=== PATIENT | male | born 1995 | race Caucasian/White ===

== ENCOUNTER 2016-11-20 15:07 | Emergency (ER) | payer SELFPAY ==
[2016-11-20] MEDS ORDERED: PANTOPRAZOLE SODIUM IV 40 MG VIAL IV ONE (15:27)
--- NOTE | 2016-11-20 15:32 | ED.PDOC ---
History of Present Illness - General Chief Complaint: GI Problem Stated Complaint: abdominal pain Time Seen by Provider: 11/20/16 15:26 Information Source: patient, RN notes reviewed, Vital Signs reviewed Exam Limitations: no limitations - History of Present Illness Initial Comments: Patient reports 5 days of nausea and vomiting with fever and crampy abdominal pain. + chills, subjective fever. Today noticed blood in vomit, both dark red and bright red. No diarrhea. No urinary symptoms. Reports he is still eating ok. Vomited ~ 20X over past 5 days. Abdominal Pain Onset Location: epigastric Pain Radiation: no radiation Quality: moderate, cramping Timing/Duration: days Improving Factors: nothing Worsening Factors: nothing Associated Symptoms: fever/chills, nausea/vomiting Review of Systems - Review of Systems Constitutional: States: chills, fever, malaise. Denies: weakness EENTM: States: no symptoms reported Respiratory: States: no symptoms reported. Denies: cough, short of breath Cardiology: States: no symptoms reported. Denies: chest pain Gastrointestinal/Abdominal: States: see HPI, abdominal pain, nausea, vomiting, other - hematemasis. Denies: constipation, diarrhea Genitourinary: States: no symptoms reported Musculoskeletal: States: no symptoms reported. Denies: back pain Skin: States: no symptoms reported Neurological: States: no symptoms reported. Denies: headache Family Medical History - Family History Mother Family History: Unknown Physical Exam - Physical Exam General Appearance: Alert, Comfortable, No apparent distress, Well Developed, Well Groomed, Well Hydrated, Well Nourished Neck: non-tender, full range of motion, supple, normal inspection Respiratory: chest non-tender, lungs clear, normal breath sounds, no respiratory distress, no accessory muscle use Cardiovascular/Chest: regular rate, rhythm, no edema, no gallop, no JVD, no murmur Gastrointestinal/Abdominal: normal bowel sounds, soft, guarding, tenderness - Epigastric and LUQ with guarding, no rebound Back Exam: normal inspection, no CVA tenderness Extremity: normal range of motion, normal inspection Neurologic: no motor/sensory deficits, alert, normal mood/affect, oriented x 3 Skin Exam: normal color, warm/dry Progress - Progress Progress: 11/20/16 16:11 Patient is feeling a lot better after IV Protonix. Nausea resolved. - Results/Orders Results/Orders: Laboratory Tests 11/20/16 11/20/16 11/20/16 15:25 15:25 16:15 WBC 8.3 RBC 5.11 Hgb 15.9 Hct 46.0 MCV 90.1 MCH 31.2 H MCHC 34.6 RDW 12.6 Plt Count 342 MPV 8.1 Absolute Neuts (auto) 5.70 Absolute Lymphs (auto) 1.90 Absolute Monos (auto) 0.60 Absolute Eos (auto) 0.10 Absolute Basos (auto) 0.10 Neutrophils % 68.7 Lymphocytes % 23.0 Monocytes % 6.7 Eosinophils % 0.9 L Basophils % 0.7 Sodium 138 Potassium 3.5 L Chloride 103 Carbon Dioxide 28 Anion Gap 10.5 L BUN 11 Creatinine 0.76 BUN/Creatinine Ratio 14.5 Random Glucose 83 Serum Osmolality 274.2 L Calcium 9.9 Total Bilirubin 0.8 AST 24 ALT 27 Alkaline Phosphatase 81 L Serum Total Protein 8.1 Albumin 4.9 Globulin 3.2 Albumin/Globulin Ratio 1.5 Amylase 34 Lipase 27 Urine Color Yellow Urine Appearance Clear Urine pH 8.5 H Ur Specific [place] 1.015 Urine Protein Negative Urine Glucose (UA) Negative Urine Ketones Negative Urine Blood Negative Urine Nitrite Negative Urine Bilirubin Negative Urine Urobilinogen 0.2 Ur Leukocyte Esterase Negative Urine RBC 0-1 Urine WBC 0 Ur Epithelial Cells 0 Amorphous Sediment 1+ Urine Bacteria 0 - EKG/XRAY/CT CT Ordered: Yes - No acute intraabdominal process Departure - Departure Clinical Impression: Gastroesophageal reflux disease Qualifiers: Esophagitis presence: esophagitis presence not specified Qualified Code(s): K21.9 - Gastro-esophageal reflux disease without esophagitis Vomiting Qualifiers: Vomiting type: hematemesis Nausea presence: with nausea Qualified Code(s): K92.0 - Hematemesis; R11.0 - Nausea Time of Disposition: 16:33 Disposition: Discharge to Home or Self Care Condition: Good Departure Forms: ED Discharge - Pt. Copy, Patient Portal Self Enrollment Instructions: DI for Gastroesophageal Reflux Disease (GERD) Diet: resume usual diet Activity: increase activity as tolerated Referrals: Rogerio Ferreira MD [Consulting Staff] - 1-2 Weeks Prescriptions: Pantoprazole Tablet [Protonix] 40 mg PO ACBK #30 tab Home Medications: Ambulatory Orders Pantoprazole Tablet [Protonix] 40 mg PO ACBK #30 tab 11/20/16
--- NOTE | 2016-11-20 16:05 | CT ---
EXAM DESCRIPTION: Abdomen/Pelvis w/Contrast CLINICAL HISTORY: Pain with vomiting COMPARISON: None TECHNIQUE: Postcontrast multidetector CT imaging of the abdomen and pelvis was performed. Multiplanar reconstructions were generated. This exam was performed according to our departmental dose-optimization program, which includes automated exposure control, adjustment of the mA and/or kV according to patient size and/or use of iterative reconstruction technique. FINDINGS: Lung bases: No acute disease process in the lung bases. Liver: Unremarkable. Gallbladder and biliary system: Unremarkable Pancreas: Unremarkable. Spleen: Unremarkable. Adrenal glands: Normal. Kidneys: Unremarkable. Abdominal vasculature: Bladder: No abnormal bladder mucosal enhancement. Gastrointestinal: No gastrointestinal obstruction or inflammation is present. Appendix is normal Pelvic organs: Unremarkable Other: No free fluid, free intraperitoneal gas . No aggressive lytic or blastic osseous lesions are present. Mildly enlarged mesenteric lymph nodes are seen. Right lower quadrant lymph nodes measure 11 and 12 mm maximum diameter. IMPRESSION: No acute findings on CT of the abdomen and pelvis. Mildly enlarged mesenteric lymph nodes are seen primarily in the right lower quadrant of the abdomen. This could indicate mesenteric adenitis. No CT evidence of acute appendicitis. Electronically signed by: Ferdinand Staton MD 11/20/2016 4:04 PM CDT
[2016-11-20 16:47] VITALS: BP 122/76; TEMP 98; O2SAT 99
== END 2016-11-20 16:47 | disposition home or self-care (01) ==
LOC: ER 15:07
DX: K21.9 Gastro-esophageal reflux disease without esophagitis (principal); R11.2 Nausea with vomiting, unspecified; K92.0 Hematemesis